=== PATIENT | female | born 1955 | race Caucasian/White ===

== ENCOUNTER 2023-03-02 09:34 | Outpatient (CLI) | payer MEDICARE, MEDICAID ==
--- NOTE | 2023-03-02 13:09 | XRAY Report ---
PROCEDURE: Knee 4 View RT INDICATIONS: RIGHT KNEE PAIN TECHNIQUE: 4 views of the right knee(s) were acquired. COMPARISON: None. FINDINGS: Bones: No fractures or dislocations. No suspicious bony lesions. Tricompartmental joint space narrowing with associated osteophytosis. Soft tissues: Small knee joint effusion. No suspicious soft tissue calcifications or masses. IMPRESSION: Small knee joint effusion. Mild to moderate tricompartmental osteoarthritis. Kellgren-Az scale of osteoarthritis: 2. Reviewed by: Randolph Hensley on 03/02/2023 1:08 PM PDT Approved by: Randolph Hensley on 03/02/2023 1:08 PM PDT Station ID: [id number]
== END 2023-03-02 23:59 | disposition home or self-care (01) ==
LOC: DI.WOS 09:34
PROVIDERS: ATTEND Orthopaedic Surgery
DX: S83.241A Other tear of medial meniscus, current injury, right knee, initial encounter (principal); M25.461 Effusion, right knee; M17.11 Unilateral primary osteoarthritis, right knee

== ENCOUNTER 2023-03-12 08:40 | Outpatient (CLI) | payer MEDICARE, MEDICAID ==
[2023-03-12 14:52] LABS: BASOPHILS # (AUTO) 0.1 10^3/uL (0.0-0.1); EOSINOPHILS # (AUTO) 0.2 10^3/uL (0.0-0.7); HGB - HEMOGLOBIN 13.6 g/dL (12.0-16.0); LYMPHOCYTES # (AUTO) 1.1 10^3/uL (1.5-3.5); LYMPHOCYTES % (AUTO) 18.6 %; MEAN CORPUSCULAR HGB CONC 30.9 g/dL (32.0-36.0); MEAN CORPUSCULAR VOLUME 90.7 fL (81.0-99.0); MONOCYTES # (AUTO) 0.4 10^3/uL (0.0-1.0); MONOCYTES % (AUTO) 6.8 %; NEUTROPHILS % (AUTO) 70.3 %; PLT - PLATELET COUNT 297 10^3/uL (130-450); RED BLOOD COUNT 4.85 10^6/uL (4.20-5.40); RED CELL DISTRIBUTION WIDTH 14.1 % (12.0-15.0); WHITE BLOOD COUNT 5.8 x10^3/uL (4.8-10.8)
[2023-03-12 14:56] LABS: ALBUMIN 4.1 g/dL (3.2-5.5); ALBUMIN/GLOBULIN RATIO 1.6 (1.0-2.2); ALKALINE PHOSPHATASE 69 IU/L (42-121); ALT ALANINE AMINOTRANSFERASE 10 IU/L (10-60); AST ASPARTATE AMINOTRANSFERASE 14 IU/L (10-42); BILIRUBIN,TOTAL 0.4 mg/dL (0.2-1.0); BUN - BLOOD UREA NITROGEN 10 mg/dL (6-20); CALCIUM 9.2 mg/dL (8.5-10.3); CARBON DIOXIDE - CO2 28 mmol/L (21-32); CHLORIDE 108 mmol/L (101-111); CHOLESTEROL 186 mg/dL; CREATININE 0.4 mg/dL (0.6-1.3); GFR - MDRD 160 (>89); GLUCOSE 141 mg/dL (74-104); HDL CHOLESTEROL 61 mg/dL; LDL CHOLESTEROL,CALCULATED 103 mg/dL; LDL/HDL RATIO 1.7 (<4.4); POTASSIUM 3.9 mmol/L (3.5-4.5); SODIUM 142 mmol/L (135-145); TOTAL PROTEIN 6.7 g/dL (6.4-8.9); TRIGLYCERIDES 112 mg/dL (48-352); VLDL CHOLESTEROL 22 mg/dL
[2023-03-12 19:15] LABS: ESTIMATED AVERAGE GLUCOSE 134 mg/dL (70-100); HEMOGLOBIN A1c% 6.3 % (4.27-6.07)
== END 2023-03-12 08:41 | disposition home or self-care (01) ==
LOC: LAB.S 08:40
PROVIDERS: ATTEND Physician Assistant Medical
DX: E11.9 Type 2 diabetes mellitus without complications (principal)
CPT/HCPCS: 36415; 80053; 80061; 83036; 83721; 84443; 85025

== ENCOUNTER 2023-04-15 09:41 | Day surgery (SDC) | payer MEDICARE, MEDICAID ==
[~2023-04-15 09:41] MED LIST: ACETAMINOPHEN 500 MG TABLET PO ONE; CELECOXIB 100 MG CAPSULE PO ONE; DEXAMETHASONE 10 MG/ML VIAL ONE; DEXAMETHASONE 10 MG/ML VIAL PO ONE; ceFAZolin 2 GM VIAL ONE; dexAMETHasone 4 MG TABLET PO ONE
[2023-04-15] MEDS ORDERED: LACTATED RINGERS 1,000 ML IV ONE ×2 (10:24→15:15)
[2023-04-15] MEDS ORDERED: MIDAZOLAM 2 MG/2 ML VIAL ONE (11:27)
[2023-04-15] MEDS ORDERED: fentaNYL 100 MCG/2 ML VIAL ONE (11:28)
[2023-04-15] MEDS ORDERED: KETOROLAC 30 MG/ML VIAL ONE (11:47)
[2023-04-15] MEDS ORDERED: BUPIVACAINE 0.25% PF 30 ML VIAL ONE (11:47)
[2023-04-15] MEDS ORDERED: KETOROLAC 30 MG/ML VIAL IM ONE (13:03)
[2023-04-15] MEDS ORDERED: BUPIVACAINE 0.25% PF 30 ML VIAL SUBQ ONE (13:03)
[2023-04-15] MEDS ORDERED: VANCOMYCIN 1 GM VIAL MC ONE (13:04)
[2023-04-15] MEDS ORDERED: HYDROGEN PEROXIDE 3% 473 ML BOTTLE TOP ONE (13:05)
[2023-04-15] MEDS ORDERED: fentaNYL 100 MCG/2 ML VIAL IVP PRN (13:15)
[2023-04-15] MEDS ORDERED: ePHEDrine 50 MG/ML VIAL IVP PRN (13:15)
[2023-04-15] MEDS ORDERED: ATROPINE ABBOJECT 1 MG/10 ML SYRINGE IVP PRN (13:15)
[2023-04-15] MEDS ORDERED: ONDANSETRON 4 MG/2 ML VIAL IVP PRN ×2 (13:15→15:27)
[2023-04-15] MEDS ORDERED: NALOXONE 0.4 MG/ML VIAL IVP PRN (13:15)
[2023-04-15] MEDS ORDERED: HYDROmorphone 0.5 MG/0.5 ML SYRINGE IVP PRN (13:15)
--- NOTE | 2023-04-15 13:15 | ANESTHESIA ---
Pre-Anesthesia VS, & Labs - Diagnosis r knee OA - Procedure r TKA Vital Signs: Temp Pulse Resp BP Pulse Ox O2 Flow Rate 36.4 C L 83 18 136/90 H 95 04/15/23 10:29 04/15/23 10:29 04/15/23 10:29 04/15/23 10:29 04/15/23 10:29 Height: 5 ft 2.5 in Weight (kg): 81.5 kg Body Mass Index: 32.3 BMI Classification: Obese - NPO >8 hours - Is Patient ?: No - Lab Results Current Lab Results: Laboratory Tests 04/15/23 10:51: POC Whole Bld Glucose 98 Lab results reviewed: Yes Home Medications and Allergies Home Medications: Ambulatory Orders Dulaglutide [Trulicity] 0.75 mg SQ OAW 04/13/23 Gabapentin [Neurontin] 300 mg PO BID 04/13/23 Omeprazole 40 mg PO DAILY 04/13/23 Sertraline HCl 100 mg PO DAILY 04/13/23 hydrOXYzine HCL [Hydroxyzine HCl] 50 mg PO TID PRN 04/13/23 Dulaglutide [Trulicity] 0.75 mg SQ OAW 04/13/23 Gabapentin [Neurontin] 300 mg PO BID 04/13/23 Omeprazole 40 mg PO DAILY 04/13/23 Sertraline HCl 100 mg PO DAILY 04/13/23 hydrOXYzine HCL [Hydroxyzine HCl] 50 mg PO TID PRN 04/13/23 Allergies/Adverse Reactions: Allergies Allergy/AdvReac Type Severity Reaction Status Date / Time No Known Drug Allergies Allergy Verified 04/15/23 10:59 Anes History & Medical History - Anesthetic History Anesthesia Complications: reports: No previous complications Family history of Anesthesia Complications: Denies Family history of Malignant Hyperthermia: Denies - Medical History Cardiovascular: reports: Deep vein thrombosis Pulmonary: reports: None Gastrointestinal: reports: GERD (w/c) Urinary: reports: None Musculoskeletal: reports: Osteoarthritis Endocrine/Autoimmune: reports: Type 2 diabetes Skin: reports: None Smoking Status: Never smoker Psychosocial: reports: No issues indicated - Surgical History General: reports: Colonoscopy Orthopedic: reports: Arthroscopic surgery Exam General: Alert, Oriented x3, Cooperative Dental: WNL Mouth Openin Fingerbreadth Neck Mobility: Normal Mallampati classification: II Thyromental Distance: 4-6 cm Respiratory: Lungs clear Cardiovascular: Regular rate Plan Anesthesia Type: Spinal Consent for Procedure(s) Verified and Reviewed: Yes Code Status: Attempt Resuscitation ASA classification: 2-Mild systemic disease Is this case an emergency?: No
[2023-04-15] MEDS ORDERED: PROPOFOL 500 MG/50 ML 1,000 MG/100 ML VIAL ONE (13:28)
[2023-04-15] MEDS ORDERED: LACTATED RINGERS 1,000 ML IV SCH (14:00)
[2023-04-15] MEDS ORDERED: PROPOFOL 500 MG/50 ML 500 MG/50 ML VIAL ONE (14:24)
--- NOTE | 2023-04-15 14:51 | OPERATIVE REPORT ---
Operative Report - General Procedure Date: 04/15/23 Planned Procedure: right total knee replacement Pre-Op Diagnosis: Osteoarthritis right knee Procedure Performed: Right total knee replacement using [employer] journey 2 cruciate retaining implants: #5 Oxinium femoral component, #3 tibial baseplate, 3 peg polyethylene patellar component, antibiotic cement for all 3 components Palacos Post Op Diagnosis: Same as preoperative diagnosis - Procedure Note Primary Surgeon: Walt Whittaker MD Secondary Surgeon: Cirilo Bang MD, Dayana MCQUEEN Anesthesia Provider: Henok Fish CRNA Anesthesia Technique: Spinal Estimated Blood Loss (mL): 150 Indications: This is a 67-year-old woman with protracted activity related pain to the right knee that has not responded to nonoperative treatment modalities. Most of her pain was over the medial aspect of her right knee with weightbearing activities. Her exam showed medial joint line tenderness, and some decreased motion, otherwise normal exam. Her x-rays were abnormal, near [id number] contact of medial compartment, varus angulation consistent with osteoarthritis right knee. She has been evaluated preoperatively and has signed informed consent for the procedure, right total knee replacement Findings: There was complete loss of articular cartilage to the medial femoral condyle weightbearing surface, marked loss of articular cartilage to the patella with osteophytes about the patellofemoral and tibiofemoral joint. The lateral compartment was relatively spared with partial thickness articular cartilage loss. The cruciate ligaments are intact Complications: None - Other Other Information/Narrative: The patient was brought to the operating room and was placed in a supine position. A pneumatic tourniquet was applied to the proximal right thigh over cast padding. This was a conical shaped Rusty thigh tourniquet that was sterile. A knee positioner was placed on the operating room table to facilitate knee flexion of the right knee during surgery. A timeout procedure was performed by the entire operating room team and all were in agreement. A midline longitudinal incision was made with the knee in flexion. A medial parapatellar arthrotomy was made. The anterior horn of medial and lateral menisci were released and part of patellar fat pad was excised. The knee was flexed and the patella was dislocated laterally. A drill hole was made in the intramedullary notch with a 9.5 mm drill. Osteophytes about the proximal tibia and femur had been removed with a rongeur. The distal femoral cutting guide was aligned parallel to the posterior condyles. The intramedullary esteban and guide was advanced and the distal femoral guide was stabilized with half pins. The distal 5 degrees valgus cut was made through the distal femoral guide. Next the extra medullary tibial guide was assembled and applied and aligned to the mechanical axis in both sagittal and coronal planes. Tibial referencing was done to allow 3 mm of bone from the most affected side. The tibial guide was stabilized with half pins. Retractors were placed medially and laterally to protect the collateral ligaments and a retractor was placed directly against the posterior bone to sublux the tibia anteriorly. A precision Nitro PDF saw was used to make the tibial proximal cut. The tibial block was removed as a single piece and the menisci were removed as well. The extension gap was assessed with a extension block spacer using a 10 mm spacer and this was found to fit well as well as the 10 mm spacer block with the knee in 90 degrees of flexion. Next the femoral positioning guide was applied and aligned to the epicondylar axis and Castalia line. This was secured in place with approximately 3 degrees of external rotation. The size of the femur at the anterior lateral trochlea was a #5. Drill holes were made in the 5 and 1 #6 cutting block was inserted and secured. The 5 cuts were made to the captured block using precision saw. The flexion gap was assessed with the 10 mm spacer and was found to fit well. The patella was then prepared. The patella was prepared with a flat cut using the Nitro PDF precision saw, approximately 10 mm with equal resection measured medially and laterally. Then the patellar drill guide was applied and 3 drill holes were made within the patella was used. The tibial trial #3 was then applied to the tibia and aligned to the mechanical axis. The Intramedullary drill and punch fin was utilized. Trial reduction was performed with the femoral and tibial components in place. Notch resection was then through the trial component . Pulsatile lavage was performed. A tourniquet was applied during the cementing process. Palacos antibiotic cement was utilized.The components were inserted sequentially: Tibia, femur and lastly patellar component. Excess cement was removed and the knee was placed in extension during the hardening.Sterile Dilute Betadine irrigation was performed. The knee had full range of motion, good patellar tracking. There was good stability of the knee in full extension mid flexion and 90 degrees of flexion. There was good alignment of the right knee. Vancomycin powder was inserted prior to the deep closure. The tourniquet had been deflated and had been in place for 21 minutes. Hemostasis was achieved with electrocautery. The deep closure was performed with #1 Ethibond proximal and distal to the patella with the knee in 40 degrees of flexion. #1 Stratofix suture was then used to close the arthrotomy incision. 2-0 stratofix was used to close the subcutaneous tissue. 3-0 Monocryl was used to do a subcuticular skin closure. Dermabond was applied to the skin incision. After the Dermabond had hardened, a silver impregnated dressing was applied. The patient tolerated the procedure well and received 2 g of Ancef intravenously and 2 g of tranexamic acid.A physician resident programs assistant was used and felt to be medically necessary to provide retraction, protection of vital structures, exposure, skin closure and dressing.
[2023-04-15] MEDS ORDERED: SODIUM CHLORIDE FLUSH 0.9% 10 ML SYRINGE IVP PRN (15:27)
[2023-04-15] MEDS ORDERED: DOCUSATE SODIUM 100 MG CAPSULE PO PRN (15:27)
[2023-04-15] MEDS ORDERED: fentaNYL 250 MCG/5 ML VIAL IVP PRN (15:27)
[2023-04-15] MEDS ORDERED: ONDANSETRON 4 MG/2 ML VIAL ONE (15:28)
--- NOTE | 2023-04-15 15:53 | ANESTHESIA POST OP EVALUATION ---
Anesthesia Post Eval - Post Anesthesia Eval Vitals: Last Vital Signs Temp 36.1 C L 04/15/23 15:45 Pulse 74 04/15/23 15:45 Resp 13 04/15/23 15:45 BP 115/72 04/15/23 15:45 Pulse Ox 94 04/15/23 15:45 O2 Flow Rate CV Function Including HR & BP: Stable Pain Control: Satisfactory Nausea & Vomiting: Negative Mental Status: Baseline Respiratory Status: Airway Patent Hydration Status: Satisfactory Anesthesia Complications: None
--- NOTE | 2023-04-15 16:57 | XRAY Report ---
PROCEDURE: Knee 2 View RT INDICATIONS: post operative imaging TECHNIQUE: 2 views of the knee(s) were acquired. COMPARISON: None. FINDINGS: Bones: Patient is status post right total knee arthroplasty. Soft tissues: Expected postoperative appearance is of the overlying soft tissues are noted. IMPRESSION: Expected postoperative appearance is status post right total knee arthroplasty. Reviewed by: Yvonne Zaman MD on 04/15/2023 4:55 PM PST Approved by: Yvonne Zaman MD on 04/15/2023 4:55 PM PST Station ID: [id number]
[2023-04-15] MEDS ORDERED: CHERRY SYRUP 10 ML UDC PO ONE (17:10)
[2023-04-15] MEDS: traMADol 50 MG TABLET PO SCH ×2 (18:54→23:56)
[2023-04-15] MEDS: SODIUM CHLORIDE FLUSH 0.9% 10 ML SYRINGE IVP SCH ×2 (18:54→23:58)
[2023-04-15] MEDS: NS W/20 MEQ KCL 1,000 ML IV SCH (19:00)
[2023-04-15] MEDS: ceFAZolin (2G) 2 GM in SODIUM CHLORIDE 0.9% MINIBAG 100 ML IV SCH ×2 (19:01→23:59)
[2023-04-15] MEDS: ACETAMINOPHEN 500 MG TABLET PO SCH ×2 (19:11→22:15)
[2023-04-15] MEDS: CELECOXIB 100 MG CAPSULE PO SCH (20:36)
[2023-04-15] MEDS: GABAPENTIN 300 MG CAPSULE PO SCH (20:40)
[2023-04-15] MEDS: ethyl alcohoL 62% SWAB AMPULE NAS SCH (20:40)
[2023-04-15] MEDS: DOCUSATE SODIUM 100 MG CAPSULE PO SCH (20:40)
[2023-04-15] MEDS: oxyCODONE 5 MG TABLET PO PRN (20:40)
[2023-04-15] MEDS: ASPIRIN EC 81 MG TABLET PO SCH (20:41)
[2023-04-16] MEDS: oxyCODONE 5 MG TABLET PO PRN (02:31)
[2023-04-16] MEDS: ACETAMINOPHEN 500 MG TABLET PO SCH ×3 (02:54→16:01)
[2023-04-16] MEDS: traMADol 50 MG TABLET PO SCH ×2 (06:28→12:12)
[2023-04-16] MEDS ORDERED: PANTOPRAZOLE 40 MG TABLET PO SCH (07:00)
[2023-04-16] MEDS ORDERED: oxyCODONE 5 MG TABLET PO PRN (07:38)
--- NOTE | 2023-04-16 07:47 | PROVIDER PROGRESS NOTE ---
Subjective - General Procedure Date: 04/15/23 Post Op Days: 1 Procedure Performed: Right total knee arthroplasty - Other Other Information/Narrative: Lying in bed semi recumbent She denies chest pain, dyspnea, nausea and emesis She has not been up with physical therapy yet She reports moderate pain today Objective - Patient Data Reviewed Vital Signs: Yes Vital Signs: Vital Signs x48h Temp Pulse Resp BP Pulse Ox 04/16/23 06:41 36.5 C 93 18 130/68 95 04/16/23 02:56 36.5 C 91 20 114/64 92 Weight: Weight 04/14/23 04/15/23 04/16/23 23:59 23:59 23:59 Weight (kg) 81.5 kg Intake & Output: Intake and Output Totals x24h 04/14/23 04/15/23 04/16/23 23:59 23:59 23:59 Intake Total 605 100 Output Total 1000 100 Balance -395 0 - Lab Results Other Lab Results: Lab Results x24hrs 04/15/23 04/15/23 Range/Units 15:20 10:51 POC Whole Bld Glucose 100 98 (70 - 100) mg/dL - Imaging Results Radiology Imaging: positive: Final report received - Current Medications Current Medications: Current Medications Generic Name Dose Route Start Last Admin Trade Name Freq PRN Reason Stop Dose Admin Acetaminophen 1,000 mg 04/15/23 16:00 04/16/23 02:54 Acetaminophen 500 Mg Tablet PO 1,000 mg Q6H JAVIER Administration Alcohol 1 amp 04/15/23 21:00 04/15/23 20:40 Ethyl Alcohol 62% Swab Ampule ANNY 1 amp BID JAVIER Administration Aspirin 81 mg 04/15/23 21:00 04/15/23 20:41 Aspirin Ec 81 Mg Tablet PO 81 mg BID JAVIER Administration Celecoxib 200 mg 04/15/23 21:00 04/15/23 20:36 Celecoxib 100 Mg Capsule PO Not Given BID JAVIER Docusate Sodium 100 mg 04/15/23 21:00 04/15/23 20:40 Docusate Sodium 100 Mg Capsule PO 100 mg BID JAVIER Administration Fentanyl 25 mcg 04/15/23 15:27 04/15/23 17:09 Fentanyl 250 Mcg/5 Ml Vial IVP 25 mcg Q2HR PRN Administration Severe Breakthrough pain(8-10) Gabapentin 300 mg 04/15/23 21:00 04/15/23 20:40 Gabapentin 300 Mg Capsule PO 300 mg BID JAVIER Administration Potassium Chloride/Sodium Chloride 1,000 mls @ 75 mls/hr 04/15/23 16:00 04/15/23 20:41 Normal Saline 0.9% W/20 Meq Kcl IV 75 mls/hr .[id number] JAVIER Infusion Pantoprazole Sodium 40 mg 04/16/23 07:00 04/16/23 06:29 Pantoprazole 40 Mg Tablet PO 40 mg QDAC JAVIER Administration Sodium Chloride 10 ml 04/15/23 17:00 04/15/23 23:58 Sodium Chloride Flush 0.9% 10 Ml Syringe IVP 10 ml 0100,0900,1700 JAVIER Administration Tramadol HCl 50 mg 04/15/23 18:00 04/16/23 06:28 Tramadol 50 Mg Tablet PO 50 mg Q6HR JAVIER Administration - Physical Exam Comments/Other: well developed, well nourished, 67 year old female, no acute distress dressing is dry and intact with about 1.5cm spot of sanguinous drainage on mepliex. No hematoa Femoral and sciatic nerve function in tact to right lower extremity ABX Reporting Has patient been on IV antibiotics over the past 48 hours?: Yes Impression/Plan - Problem List Problem List: 67 year old female with a past medical history of diabetes mellitus type II and anxiety/depression is post operative day 1 from a right total knee arthroplasty. She reports moderate pain today and is awaiting evaluation from physical therapy for discharge home today. She is recovering well without nausea, emesis, chest pain or dyspnea. Plan: - DVT prophylaxis with 81 mg of aspirin twice daily for 6 weeks, SCDs in hospital - Physical and occupational therapy evaluation today and assessment for discharge home - Pain control with scheduled tylenol, celebrex, tramadol and oxycodone and IV fentanyl as needed. Avoid IV narcotics in anticipation of discharge home. Oxycodone regimen altered today given reported pain overnight - Weight bearing as tolerated with front wheeled walker at all times - Follow up with orthopedic clinic in 5 days - Mepilex dressing to remain in place until follow up - Refer to OPS discharge instructions and call the orthopedic office with outstanding questions - Bowel regimen - Normal diet, IV fluids to be discontinued when tolerating oral diet without nausea and emesis
[2023-04-16] MEDS: NS W/20 MEQ KCL 1,000 ML IV SCH (08:53)
[2023-04-16] MEDS ORDERED: SERTRALINE 50 MG TABLET PO SCH (09:00)
[2023-04-16] MEDS: ASPIRIN EC 81 MG TABLET PO SCH (09:09)
[2023-04-16] MEDS: GABAPENTIN 300 MG CAPSULE PO SCH (09:09)
[2023-04-16] MEDS: ethyl alcohoL 62% SWAB AMPULE NAS SCH (09:09)
[2023-04-16] MEDS: DOCUSATE SODIUM 100 MG CAPSULE PO SCH (09:09)
[2023-04-16] MEDS: SODIUM CHLORIDE FLUSH 0.9% 10 ML SYRINGE IVP SCH ×2 (09:10→16:00)
[2023-04-16] MEDS: CELECOXIB 100 MG CAPSULE PO SCH (09:13)
--- NOTE | 2023-04-16 13:33 | PHARMACY PROGRESS NOTE ---
- Best Possible Medication History Admit Date and Time: Processed by: Nursing As the person ultimately responsible for medication therapy, providers are able to order a medication from an existing home medication list in [facility] via the "Reconcile Routine" prior to Confirmation of that medication by academic support director. Such practice is discouraged except when the physician, in their clinical judgment, deems that a medical need exists for a medication without regard to previous use.
[2023-04-16 14:49] VITALS: O2SAT 94
[2023-04-16 16:37] VITALS: BP 136/76
== END 2023-04-16 16:55 | disposition home or self-care (01) ==
LOC: SDS 09:41 → MS2 15:07 → SDS 04-16 16:55
PROVIDERS: ATTEND Orthopaedic Surgery
DX: M17.11 Unilateral primary osteoarthritis, right knee (principal); E11.9 Type 2 diabetes mellitus without complications; E66.9 Obesity, unspecified; Z79.85 Long-term (current) use of injectable non-insulin antidiabetic drugs; Z86.718 Personal history of other venous thrombosis and embolism; Z68.32 Body mass index [BMI] 32.0-32.9, adult
CPT/HCPCS: 27447; 73560; 97116; 97162; 97165; 97530; A9270; J3010; J3370; J7120

== ENCOUNTER 2023-05-06 09:11 | Outpatient (CLI) | payer MEDICARE, MEDICAID | END 2023-05-06 09:12 | disposition home or self-care (01) | LOC: LAB.S 09:11 | PROVIDERS: ATTEND Physician Assistant Surgical | DX: Z96.651 Presence of right artificial knee joint (principal) | CPT/HCPCS: 36415; 85651; 86140 ==

== ENCOUNTER 2023-05-07 10:48 | Outpatient (CLI) | payer MEDICARE, MEDICAID | END 2023-05-07 10:49 | disposition home or self-care (01) | LOC: LAB.R 10:48 | PROVIDERS: ATTEND Orthopaedic Surgery | DX: L08.9 Local infection of the skin and subcutaneous tissue, unspecified (principal) | CPT/HCPCS: 87070; 87181; 87205 ==

== ENCOUNTER 2023-05-09 10:05 | Outpatient (CLI) | payer MEDICARE, MEDICAID | END 2023-05-09 23:59 | disposition critical access hospital (66) | LOC: EMS 10:05 | DX: M25.561 Pain in right knee (principal); Z96.651 Presence of right artificial knee joint | CPT/HCPCS: A0425; A0429 ==

== ENCOUNTER 2023-05-09 10:39 | Emergency (ER) | payer MEDICARE, MEDICAID ==
--- NOTE | 2023-05-09 11:50 | ED Physician Documentation ---
History of Present Illness - Stated complaint Stated Complaint: R KNEE PX - Chief complaint Chief Complaint: Ext Problem - Additonal information Additional information: 67-year-old female presents emergency department for evaluation of worsening right knee pain. She underwent a total knee replacement 04/15/2023 secondary to severe knee osteoarthritis. She states that she had been doing well but sometime in the last week she began having increasing pain in her right knee. She has had some drainage from the superior portion of the vertical incision that is serous. No fevers. She is ambulatory with a walker though it is getting more painful to do so. Patient did have a wound culture of the knee completed 05/07/2023 which grew a clindamycin resistant Staph aureus. Currently on cephalexin. Patient is a poor historian and unsure of timing of events. Review of Systems Constitutional: denies: Fever, Chills Skin: reports: Other (surgical incision) Musculoskeletal: denies: Neck pain, Back pain PD PAST MEDICAL HISTORY - Past Medical History Past Medical History: Yes Cardiovascular: Deep vein thrombosis Respiratory: None Neuro: None Endocrine/Autoimmune: Type 2 diabetes GI: GERD : None HEENT: Chronic vision loss Psych: Anxiety Musculoskeletal: Osteoarthritis Derm: None - Past Surgical History Past Surgical History: Yes General: Colonoscopy Ortho: Knee replacement, Arthroscopic surgery - Present Medications Home Medications: Ambulatory Orders Medication Instructions Recorded Confirmed Dulaglutide [Trulicity] 0.75 mg SQ OAW 04/13/23 04/13/23 Gabapentin [Neurontin] 300 mg PO BID 04/13/23 04/15/23 Omeprazole 40 mg PO DAILY 04/13/23 04/15/23 Sertraline HCl 100 mg PO DAILY 04/13/23 04/15/23 hydrOXYzine HCL [Hydroxyzine HCl] 50 mg PO TID PRN 04/13/23 04/13/23 cephALEXin [Keflex] 500 mg PO Q6H 05/09/23 05/09/23 - Allergies Allergies/Adverse Reactions: Allergies Allergy/AdvReac Type Severity Reaction Status Date / Time No Known Drug Allergies Allergy Verified 05/09/23 10:51 - Social History Does the pt smoke?: No Smoking Status: Never smoker PD ED PE NORMAL - General General: Alert and oriented X 3, No acute distress - Extremities Extremities: Other (Right knee with a lengthy midline vertical incision generally intact. However the superior 2 to 3 cm of the incision are erythematous with some fluctuance felt underneath and serous drainage. Patient has normal flexion extension of the knee. Neurovascular intact distally) Results - Vitals Vitals: Vital Signs - 24 hr 05/09/23 10:39 Temperature 36.6 C Heart Rate 101 H Respiratory 16 Rate Blood Pressure 153/94 H O2 Saturation 95 Oxygen O2 Source Room air PD Medical Decision Making - ED course Complexity details: reviewed results, re-evaluated patient, d/w patient ED course: No problem widening she 67-year-old female presents emergency department for evaluation of her right knee. Status post total knee replacement on 15 April. Was seen in follow-up with Dr. Leger on 07 May as she had begun to have some drainage from the superior portion of her wound. Subsequent culture grew clindamycin resistant Staph aureus. Currently on cephalexin. Dr. Leger was able to review the wound photos that were obtained today. He feels that the appearance of the wound is improved from several days ago. I discussed with him if he felt it would benefit to have labs obtained including CBC and CRP but as the patient is afebrile he would not recommend them today. Patient is scheduled to see Dr. Whittaker in follow-up on the seventh of this month and she is encouraged to keep that appointment. At this time she feels better knowing that Dr. Leger feels the appearance of the incision is improved. She is encouraged to continue to wear her knee immobilizer. Advised to return to the ER should she develop any fevers, milky drainage red streaking or have more concerning symptoms of infection. Departure - Departure Disposition: 01 Home, Self Care Clinical Impression: Status post total knee replacement, right Right knee pain Qualifiers: Chronicity: acute Qualified Code(s): M25.561 - Pain in right knee Condition: Stable Comments: Dr. Africa Mustafa was able to review the photos taken of your knee today. He feels the appearance of the redness and incision are improved. He recommends that you continue taking the Keflex as prescribed. You are scheduled to see Dr. Nicole on the seventh of this month. Please do not miss that appointment. Dr. Miller would like you to continue to wear the knee immobilizer while at home. You can shower normally. A simple bandage over the drainage is all you will need. Return immediately to the ER if you are having any new or worsening symptoms, develop fevers, or have drainage from the knee that turns milky or cloudy Forms: PCP List
[2023-05-09] MEDS ORDERED: oxyCODONE 5 MG TABLET PO STA (11:57)
--- NOTE | 2023-05-09 12:31 | XRAY Report ---
PROCEDURE: Knee 3 View RT INDICATIONS: pain, swelling; s/p knee replacement TECHNIQUE: 3 views of the knee(s) were acquired. COMPARISON: None. FINDINGS: Bones: No fractures or dislocations. No suspicious bony lesions. Well-aligned arthroplasty withou t hardware complication. Soft tissues: No knee joint effusion. No suspicious soft tissue calcifications or masses. IMPRESSION: Expected postoperative appearance of a right total knee arthroplasty. No significant effusion. Reviewed by: Randolph Hensley on 05/09/2023 11:30 AM [facility] Approved by: Randolph Hensley on 05/09/2023 11:30 AM [facility] Station ID: [id number]
[2023-05-09] MEDS ORDERED: BACITRACIN ZINC OINT 1 PACKET TOP STA (12:32)
[2023-05-09 13:00] VITALS: BP 129/83; O2SAT 96
== END 2023-05-09 13:04 | disposition home or self-care (01) ==
LOC: EDUNIT# → ED 10:39
DX: M25.561 Pain in right knee (principal); Z96.651 Presence of right artificial knee joint; E11.9 Type 2 diabetes mellitus without complications; Z79.899 Other long term (current) drug therapy
CPT/HCPCS: 73562; 87070; 87181; 87205; 99283; 99284; A9270; 80053; 83690; 85025; 86140

== ENCOUNTER 2023-05-21 08:00 | Outpatient (CLI) | payer MEDICARE, MEDICAID ==
[2023-05-21 20:23] LABS: BILIRUBIN,URINE NEGATIVE (NEGATIVE); GLUCOSE, URINE (UA) NEGATIVE (NEGATIVE); KETONES,URINE (UA) NEGATIVE (NEGATIVE); LEUKOCYTE ESTERASE, URINE MODERATE (NEGATIVE); NITRITE,URINE NEGATIVE (NEGATIVE); OCCULT BLOOD,URINE NEGATIVE (NEGATIVE); PROTEIN,URINE NEGATIVE (NEGATIVE); UROBILINOGEN,URINE 0.2 (NORMAL) E.U./dL (NORMAL)
[2023-05-21 20:53] LABS: BACTERIA,URINE Moderate /HPF (None Seen); CLARITY,URINE CLOUDY (CLEAR); RBC,URINE None Seen /HPF (0-5); SQUAMOUS EPITHELIAL CELL,UR MANY Squamous (<= Few)
== END 2023-05-21 23:59 | disposition home or self-care (01) ==
LOC: LAB.S 08:00
PROVIDERS: ATTEND Emergency Medicine
DX: N39.0 Urinary tract infection, site not specified (principal)
CPT/HCPCS: 81001; 81003; 87086

== ENCOUNTER 2023-08-25 08:00 | Outpatient (CLI) | payer MEDICARE, MEDICAID ==
--- NOTE | 2023-08-25 16:40 | XRAY Report ---
PROCEDURE: Knee 4 View RT INDICATIONS: RIGHT TOTAL KNEE, NEW ONSET OF PAIN NO INJURY TECHNIQUE: 4 views of the knee(s) were acquired. COMPARISON: 06/23/2023. FINDINGS: Bones: No fractures or dislocations. No suspicious bony lesions. Soft tissues: Small persistent knee joint effusion. No suspicious soft tissue calcifications or mass es. IMPRESSION: Stable postoperative changes of right total knee arthroplasty without evidence for hardware complicat ion. Reviewed by: Chidi Araujo MD on 08/25/2023 4:39 PM PDT Approved by: Chidi Araujo MD on 08/25/2023 4:39 PM PDT Station ID: [id number]
== END 2023-08-25 23:59 | disposition home or self-care (01) ==
LOC: DI.WOS 08:00
PROVIDERS: ATTEND Orthopaedic Surgery
DX: Z96.651 Presence of right artificial knee joint (principal)

== ENCOUNTER 2023-09-11 12:33 | Outpatient (CLI) | payer MEDICARE, MEDICAID ==
--- NOTE | 2023-09-16 09:08 | Mammography Report ---
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 Due for bilateral exam. Comparison is made to exams dated: 07/10/2022 mammogram, 07/10/2022 ultrasound, 03/26/2022 mammogram, an d 01/06/2019 mammogram - [facility]. There are scattered areas of fibroglandular density in both breasts (category b / 25%-50% glandular t issue). There is an 8 mm oval focal asymmetry in the right breast at 8 o'clock middle depth. This is not sig nificantly changed. Mammograms are otherwise stable. No other significant masses, calcifications, or other findings are seen in either breast. IMPRESSION: INCOMPLETE: NEEDS ADDITIONAL IMAGING EVALUATION Mammograms are stable. The 8 mm oval focal asymmetry in the right breast is stable, most likely is a cyst or an intramammary node and is indeterminate. An ultrasound is recommended. This was performed immediately following this exam. Based on the Tyrer Cuzick model (a risk assessment model) the patient's lifetime risk is 6.2% and her 10 year risk is 3.0%. According to the ACR, ACS, and NCCN guidelines, an annual breast MRI exam shana g with mammogram is recommended if the patient's lifetime risk is 20% or greater. This exam was interpreted at Station ID: [id number]. NOTE: For mammograms, a report in lay terms will be sent to the patient. Approximately 15% of breast malignancies will not be visualized mammographically. In the management of a palpable breast mass, a negative mammogram must not discourage biopsy of a clinically suspicious lesion. Electronically Signed By: Meka tamayo/:09/11/2023 14:11:24 ACR BI-RADS Category 0: Incomplete 3340F PARENCHYMAL PATTERN: (A) - The breast(s) demonstrate(s) scattered fibroglandular densities. BI-RADS CATEGORY: (0) - 0 Ultrasound [id number] Immediate follow-up LATERALITY: (B)
--- NOTE | 2023-09-16 09:08 | Ultrasound Report ---
LIMITED ULTRASOUND OF RIGHT BREAST: 09/15/2023 CLINICAL: Patient returns today to evaluate a focal asymmetry in the right breast. Comparison is made to exams dated: 09/11/2023 mammogram - [facility], 07/10/2022 mammo gram, 07/10/2022 ultrasound, 03/26/2022 mammogram, and 01/06/2019 mammogram - [facility]. Color flow and Doppler ultrasound of the right breast 6 o'clock and 8-9 o'clock regions were performe d. Leal scale images of the real-time examination were reviewed. No definite correlate to the possible mammographic asymmetry 8:00-9:00. There is a probable area of g landular tissue surrounded by fibrosis at the 8:00 position 4 cm from the nipple, but no definite com plicated cyst as mentioned previously. IMPRESSION: PROBABLY BENIGN There are no convincing abnormalities seen in the right breast to correspond with the mammography fin dings at 8 to 9 o'clock. There is probably normal fibroglandular tissue, less likely a lymph node or decompressed complicated cyst. No previous images are available for direct comparison. A follow-up right mammogram and an ultrasound in 6 months is recommended to demonstrate stability. Findings and recommendations were conveyed to the patient at time of exam. This exam was interpreted at Station ID: [id number]. Electronically Signed By: Meka tamayo/:09/15/2023 11:13:31 Ultrasound BI-RADS: 3 Probably benign BI-RADS CATEGORY: (3) - 3 Mammo and [place] [id number] 6 month follow-up LATERALITY: (R)
== END 2023-09-11 12:34 | disposition home or self-care (01) ==
LOC: DI 12:33
PROVIDERS: ATTEND Physician Assistant Medical
DX: R92.8 Other abnormal and inconclusive findings on diagnostic imaging of breast (principal); R92.323 Mammographic fibroglandular density, bilateral breasts

== ENCOUNTER 2023-09-23 08:00 | Outpatient (CLI) | payer MEDICARE, MEDICAID | END 2023-09-23 23:59 | disposition home or self-care (01) | LOC: LAB.S 08:00 | PROVIDERS: ATTEND Internal Medicine | DX: N39.0 Urinary tract infection, site not specified (principal) | CPT/HCPCS: 87077; 87086 ==

== ENCOUNTER 2023-10-15 04:23 | Outpatient (CLI) | payer MEDICARE, MEDICAID | END 2023-10-15 04:24 | disposition EMS.NT | LOC: EMS 04:23 | DX: R07.9 Chest pain, unspecified (principal); M54.2 Cervicalgia ==

== ENCOUNTER 2023-10-23 06:26 | Day surgery (SDC) | payer MEDICARE, MEDICAID ==
[2023-10-23] MEDS: LACTATED RINGERS 1,000 ML IV ONE ×2 (06:35→08:10)
--- NOTE | 2023-10-23 07:02 | ANESTHESIA ---
Pre-Anesthesia VS, & Labs - Diagnosis SCREENING - Procedure COLONOSCOPY Vital Signs: Temp Pulse Resp BP Pulse Ox O2 Flow Rate 36 C L 82 20 132/83 H 96 10/23/23 06:42 10/23/23 06:42 10/23/23 06:42 10/23/23 06:42 10/23/23 06:42 Height: 5 ft 3 in Weight (kg): 80.3 kg Body Mass Index: 31.4 BMI Classification: Obese - NPO Last Fluid Intake: 0200 Last Food Intake: >8HR - Is Patient ?: No - Lab Results Current Lab Results: Laboratory Tests 10/23/23 06:51: POC Whole Bld Glucose 140 H Home Medications and Allergies Dulaglutide [Trulicity] 0.75 mg SQ OAW 04/13/23 Gabapentin [Neurontin] 300 mg PO BID 04/13/23 Omeprazole 40 mg PO DAILY PRN 04/13/23 Sertraline HCl 100 mg PO DAILY 04/13/23 hydrOXYzine HCL [Hydroxyzine HCl] 50 mg PO TID PRN 04/13/23 Allergies/Adverse Reactions: Allergies Allergy/AdvReac Type Severity Reaction Status Date / Time No Known Drug Allergies Allergy Verified 05/09/23 10:51 Anes History & Medical History - Anesthetic History Anesthesia Complications: reports: No previous complications Family history of Anesthesia Complications: Denies - Medical History Cardiovascular: reports: None, Deep vein thrombosis, Other (HAS SOME "MUSCULAR CHEST PAIN", ACTIVE/ WALKS) Pulmonary: reports: None Gastrointestinal: reports: GERD Urinary: reports: None Neuro: reports: None Musculoskeletal: reports: Osteoarthritis Endocrine/Autoimmune: reports: Type 2 diabetes (OFF TRULICITY "A COUPLE OF WEEKS") Skin: reports: None Smoking Status: Never smoker Psychosocial: reports: No issues indicated - Surgical History General: reports: Colonoscopy Orthopedic: reports: Knee replacement, Arthroscopic surgery Exam General: Alert Dental: WNL Mouth Openin Fingerbreadth Neck Mobility: Normal Mallampati classification: II Thyromental Distance: 4-6 cm Respiratory: Lungs clear Cardiovascular: Regular rate Plan Anesthesia Type: Total IV Consent for Procedure(s) Verified and Reviewed: Yes Code Status: Attempt Resuscitation ASA classification: 2-Mild systemic disease Is this case an emergency?: No
--- NOTE | 2023-10-23 07:23 | HISTORY & PHYSICAL EXAMINATION ---
Chief Complaint - Chief Complaint Chief Complaint: here for colonoscopy History of Present Illness - History Obtained From Records Reviewed: yes History obtained from: pt Exam Limitations: none - History of Present Illness HPI Comment/Other: she states she had a colonoscopy about 6 years ago and she is due for another one. no fhx colon ca. recent labs normal. she does not recall the findings of the last colonoscopy. occasional mild llq pain. distant hx c diff following abx course. History - Past Medical History Cardiovascular: reports: None, Deep vein thrombosis, Other (HAS SOME "MUSCULAR CHEST PAIN", ACTIVE/ WALKS) Respiratory: reports: None Neuro: reports: None Endocrine/Autoimmune: reports: Type 2 diabetes (OFF TRULICITY "A COUPLE OF WEEKS") GI: reports: GERD : reports: None HEENT: reports: Chronic vision loss Psych: reports: Anxiety Musculoskeletal: reports: Osteoarthritis Derm: reports: None MRSA Hx?: Yes - Past Surgical History General: reports: Colonoscopy Ortho: reports: Knee replacement, Arthroscopic surgery Meds/Allgy - Home Medications Home Medications: Ambulatory Orders Medication Instructions Recorded Confirmed Dulaglutide [Trulicity] 0.75 mg SQ OAW 04/13/23 10/15/23 Gabapentin [Neurontin] 300 mg PO BID 04/13/23 10/15/23 Omeprazole 40 mg PO DAILY PRN 04/13/23 10/15/23 Sertraline HCl 100 mg PO DAILY 04/13/23 10/15/23 hydrOXYzine HCL [Hydroxyzine HCl] 50 mg PO TID PRN 04/13/23 10/15/23 - Allergies Allergies/Adverse Reactions: Allergies Allergy/AdvReac Type Severity Reaction Status Date / Time No Known Drug Allergies Allergy Verified 05/09/23 10:51 Review of Systems - Other Findings Other Findings: 10 pt ros as above otherwise unremarkable Exam - Vital Signs Vital Signs: Vital Signs x48h Temp Pulse Resp BP Pulse Ox 10/23/23 06:42 36 C L 82 20 132/83 H 96 - Physical Exam General Appearance: positive: No acute distress, Alert Eyes Bilateral: positive: PERRL, EOMI ENT: positive: No signs of dehydration Neck: positive: No JVD Respiratory: positive: No respiratory distress Cardiovascular: positive: Regular rate & rhythm Abdomen: positive: Non-tender, No distention Neurologic/Psychiatric: positive: Oriented x3 Conclusion/Plan - Problem List (1) Colon cancer screening Conclusion/Plan: plan colonoscopy. parq held and consent obtained
[2023-10-23] MEDS ORDERED: PROPOFOL 500 MG/50 ML 500 MG/50 ML VIAL ONE (07:31)
[2023-10-23] MEDS ORDERED: LIDOCAINE-PF 2% 10 ML AMP SUBQ ONE (07:31)
[2023-10-23] MEDS ORDERED: SIMETHICONE *(INFANT SUSP)* 40 MG/0.6 ML BOTTLE ONE (07:47)
[2023-10-23] MEDS: SIMETHICONE *(INFANT SUSP)* 40 MG/0.6 ML BOTTLE PO ONE (07:48)
[2023-10-23 08:55] VITALS: BP 140/89; O2SAT 99
--- NOTE | 2023-10-23 09:37 | ANESTHESIA POST OP EVALUATION ---
Anesthesia Post Eval - Post Anesthesia Eval Vitals: Last Vital Signs Temp 36.2 C L 10/23/23 08:40 Pulse 77 10/23/23 08:40 Resp 16 10/23/23 08:40 BP 140/89 H 10/23/23 08:40 Pulse Ox 99 10/23/23 08:40 O2 Flow Rate CV Function Including HR & BP: Stable Pain Control: Satisfactory Nausea & Vomiting: Negative Mental Status: Baseline Respiratory Status: Airway Patent Hydration Status: Satisfactory Anesthesia Complications: None
== END 2023-10-23 06:27 | disposition home or self-care (01) ==
LOC: SDS 06:26
PROVIDERS: ATTEND Surgery
PROC: 0DBH8ZZ Excision of Cecum, Via Natural or Artificial Opening Endoscopic (ICD-10-PCS; principal; 2023-10-23 07:30)
DX: Z12.11 Encounter for screening for malignant neoplasm of colon (principal); D12.0 Benign neoplasm of cecum; K57.30 Diverticulosis of large intestine without perforation or abscess without bleeding; E66.9 Obesity, unspecified; Z68.31 Body mass index [BMI] 31.0-31.9, adult; E11.9 Type 2 diabetes mellitus without complications; Z86.718 Personal history of other venous thrombosis and embolism
CPT/HCPCS: 45380; A9270; J7120

== ENCOUNTER 2023-10-26 08:58 | Outpatient (CLI) | payer MEDICARE, MEDICAID ==
[2023-10-26 16:04] LABS: CALCIUM 8.9 mg/dL (8.5-10.3); CREATININE 0.5 mg/dL (0.6-1.3); POTASSIUM 4.6 mmol/L (3.5-4.5)
[2023-10-26 22:21] LABS: ESTIMATED AVERAGE GLUCOSE 120 mg/dL (70-100); HEMOGLOBIN A1c% 5.8 % (4.27-6.07)
== END 2023-10-26 08:59 | disposition home or self-care (01) ==
LOC: LAB.S 08:58
PROVIDERS: ATTEND Physician Assistant Medical
DX: E11.9 Type 2 diabetes mellitus without complications (principal)
CPT/HCPCS: 36415; 80048; 82043; 82570; 83036

== ENCOUNTER 2023-11-03 08:00 | Outpatient (CLI) | payer MEDICARE, MEDICAID | END 2023-11-03 23:59 | disposition home or self-care (01) | LOC: LAB.S 08:00 | PROVIDERS: ATTEND Physician Assistant Medical | DX: R35.0 Frequency of micturition (principal); R10.9 Unspecified abdominal pain | CPT/HCPCS: 87086 ==

== ENCOUNTER 2023-11-06 15:10 | Outpatient (CLI) | payer MEDICARE, MEDICAID ==
[2023-11-06] MEDS ORDERED: iohexoL-300 100 ML VIAL ONE (15:13)
[2023-11-06] MEDS ORDERED: DIATRIZOATE MEGLU/DIATRIZO SOD 30 ML BOTTLE PO ONE (15:14)
[2023-11-06] MEDS: DIATRIZOATE MEGLU/DIATRIZO SOD 30 ML BOTTLE PO ONE (17:23)
[2023-11-06] MEDS: iohexoL-300 100 ML VIAL IVP ONE (17:23)
--- NOTE | 2023-11-09 09:51 | CT Report ---
PROCEDURE: Abdomen/Pelvis W INDICATIONS: ABD CRAMPS CONTRAST: 100ml omni 300 TECHNIQUE: After the administration of intravenous contrast, a CT scan of the abdomen and pelvis was performed. Images were recorded and evaluated at appropriate window settings. Reformats: coronal and sagittal. F or radiation dose reduction, the following was used: automated exposure control, adjustment of mA and /or kV according to patient size. COMPARISON: None FINDINGS: Image quality: Diagnostic Lower chest: Bibasilar atelectasis/scarring. Prominent mediastinal fat. Normal heart size. Liver: No suspicious intraparenchymal lesion. A focus of fat stranding is seen anterior to the left l obe with a central tiny hyperdensity measuring 1.2 cm (2/34). Gallbladder and biliary system: Cholelithiasis. No ductal dilation Pancreas: No ductal dilation Spleen: Nonenlarged Adrenals: No discrete nodules Kidneys: No solid mass. No hydronephrosis Vessels and lymph nodes: Mild atherosclerosis. The main portal vein is patent. No abdominal aortic an eurysm. Bowel and peritoneum: No evidence of small bowel obstruction. There are colonic diverticula without e vidence of acute inflammation. Appendix appears nondilated. There are foci of fatty attenuation with encapsulated wall adjacent to the sigmoid colon and bladder dome. Body wall: Small fat-containing umbilical hernia Pelvis: Bladder appears unremarkable. Reproductive organs appear unremarkable on limited CT evaluatio n Bones: There are degenerative changes. Indeterminate heterogeneous attenuation of the marrow, possibl y senescent. IMPRESSION: No evidence of bowel obstruction or abscess. No pathologic ascites. Sequelae of possible fat necrosis adjacent to the left lobe of the liver and sigmoid colon, probably from prior epiploic appendagitis or omental infarct. Reviewed by: Herbie Lomeli MD on 11/09/2023 9:50 AM PDT Approved by: Herbie Lomeli MD on 11/09/2023 9:50 AM PDT Station ID: [id number]
== END 2023-11-06 15:11 | disposition home or self-care (01) ==
LOC: DI 15:10
PROVIDERS: ATTEND Physician Assistant Medical
DX: R10.9 Unspecified abdominal pain (principal)
CPT/HCPCS: 74177; Q9963; Q9967

== ENCOUNTER 2023-12-06 11:02 | Outpatient (CLI) | payer MEDICARE, MEDICAID ==
--- NOTE | 2023-12-06 14:47 | Ultrasound Report ---
PROCEDURE: Abdomen Limited INDICATIONS: ABN ABD IMAGING TECHNIQUE: Real-time focused scanning was performed of the abdomen, with image documentation. COMPARISONS: Abnormal findings on recent CT. FINDINGS: Liver: Increased liver echogenicity, commonly mild hepatic steatosis. Focus of fat necrosis along th e anterior margin of the left hepatic lobe. Gallbladder: Cholelithiasis without wall thickening. Biliary ducts: Intrahepatic bile ducts are non-dilated. Extrahepatic bile duct caliber measures 3 m m. Normal is 6-7 mm or less in diameter, or 10 mm or less post-cholecystectomy. Pancreas: Visualized portions of the pancreas are sonographically normal. Right kidney: Normal in size and echotexture. Right kidney measures 10.7 cm long. No hydronephrosis or nephrolithiasis. No solid masses. No complex renal cystic lesions which require follow-up. IVC: Intrahepatic inferior vena cava is patent. Miscellaneous: No free abdominal fluid. IMPRESSION: Focus of fat necrosis along the anterior margin of the left hepatic lobe. Cholelithiasis without evidence of acute cholecystitis. Reviewed by: Randolph Hensley MD on 12/06/2023 2:46 PM PDT Approved by: Randolph Hnesley MD on 12/06/2023 2:46 PM PDT Station ID: [id number]
== END 2023-12-06 11:03 | disposition home or self-care (01) ==
LOC: DI 11:02
PROVIDERS: ATTEND Registered Nurse
DX: K72.90 Hepatic failure, unspecified without coma (principal); K80.20 Calculus of gallbladder without cholecystitis without obstruction

== ENCOUNTER 2023-12-06 11:34 | Emergency (ER) | payer MEDICARE, MEDICAID ==
[2023-12-06 12:10] LABS: BILIRUBIN,URINE NEGATIVE (NEGATIVE); GLUCOSE, URINE (UA) NEGATIVE (NEGATIVE); KETONES,URINE (UA) NEGATIVE (NEGATIVE); LEUKOCYTE ESTERASE, URINE SMALL (NEGATIVE); NITRITE,URINE NEGATIVE (NEGATIVE); OCCULT BLOOD,URINE TRACE-LYSE (NEGATIVE); PH,URINE 7.5 PH (5.0-7.5); PROTEIN,URINE NEGATIVE (NEGATIVE); UROBILINOGEN,URINE 0.2 (NORMAL) E.U./dL (NORMAL)
[2023-12-06 12:14] LABS: CLARITY,URINE SL. CLOUDY (CLEAR)
[2023-12-06 12:18] LABS: BACTERIA,URINE Few /HPF (None Seen); SQUAMOUS EPITHELIAL CELL,UR FEW Squamous (<= Few); WBC,URINE >25 /HPF (0-5)
--- NOTE | 2023-12-06 12:53 | ED Physician Documentation ---
PD HPI ABD PAIN - Stated complaint Stated Complaint: LWR ABD PX, FREQUENT URINATION - Chief complaint Chief Complaint: Abd Pain - History obtained from History obtained from: Patient - Additional information Additional information: She has had ongoing for several months now lower abdominal cramping with urinary frequency. She was treated with antibiotics for UTI a little over a month ago. Also a little over a month ago she had a colonoscopy that showed mild diverticulosis and a single polyp that was benign. Urine culture from last month grew E. coli that was resistant to the isma quinolones. Denies fevers. PD PAST MEDICAL HISTORY - Past Medical History Past Medical History: Yes Cardiovascular: Deep vein thrombosis, Other Respiratory: None Neuro: None Endocrine/Autoimmune: Type 2 diabetes GI: GERD CASINO PORTER: None : None HEENT: Chronic vision loss Psych: Depression, Anxiety Musculoskeletal: Osteoarthritis Derm: None - Past Surgical History Past Surgical History: Yes General: Colonoscopy Ortho: Knee replacement, Arthroscopic surgery - Present Medications Home Medications: Ambulatory Orders Medication Instructions Recorded Confirmed Dulaglutide [Trulicity] 0.75 mg SQ OAW 04/13/23 12/06/23 Gabapentin [Neurontin] 300 mg PO BID 04/13/23 12/06/23 Omeprazole 40 mg PO DAILY PRN 04/13/23 12/06/23 Sertraline HCl 100 mg PO DAILY 04/13/23 12/06/23 hydrOXYzine HCL [Hydroxyzine HCl] 50 mg PO TID PRN 04/13/23 12/06/23 Nitrofurantoin [Macrobid] 1 cap PO BID #10 cap 12/06/23 - Allergies Allergies/Adverse Reactions: Allergies Allergy/AdvReac Type Severity Reaction Status Date / Time No Known Drug Allergies Allergy Verified 12/06/23 11:51 - Social History Does the pt smoke?: No Smoking Status: Never smoker Does the pt drink ETOH?: No Does the pt have substance abuse?: Yes Substance Use and Type: Marijuana - Immunizations Immunizations are current?: Yes - POLST Patient has POLST: No PD ED PE NORMAL - Vitals Vital signs reviewed: Yes - General General: Alert and oriented X 3, No acute distress - Abdomen Abdomen: Normal bowel sounds, Soft, Non tender - Back Back: No CVA TTP - Neuro Neuro: Alert and oriented X 3 Results - Vitals Vitals: Vital Signs - 24 hr 12/06/23 12/06/23 11:51 13:05 Temperature 36.2 C L Heart Rate 94 84 Respiratory 18 20 Rate Blood Pressure 166/117 H 144/87 H O2 Saturation 100 99 Oxygen O2 Source Room air - Labs Labs: Laboratory Tests 12/06/23 12:00 Urine Color YELLOW Urine Clarity SL. CLOUDY Urine pH 7.5 Ur Specific Dewey 1.020 Urine Protein NEGATIVE Urine Glucose (UA) NEGATIVE Urine Ketones NEGATIVE Urine Occult Blood TRACE-LYSE Urine Nitrite NEGATIVE Urine Bilirubin NEGATIVE Urine Urobilinogen 0.2 (NORMAL) Ur Leukocyte Esterase SMALL H Urine RBC 6-10 H Urine WBC >25 H Ur Squamous Epith Cells FEW Squamous Urine Bacteria Few Ur Microscopic Review INDICATED Urine Culture Comments INDICATED PD Medical Decision Making - ED course ED course: Abdominal cramping with pretty significant workup already, pending ultrasound from this morning. Very benign examination. Will treat the UTI but recommended referral to urology given 2 UTIs in a month or so. Departure - Departure Disposition: Home, Self Care Clinical Impression: Urinary tract infection Qualifiers: Urinary tract infection type: acute cystitis Hematuria presence: without hematuria Qualified Code(s): N30.00 - Acute cystitis without hematuria Condition: Good Record reviewed to determine appropriate education?: Yes Instructions: ED UTI Cystitis Female Follow-Up: Kishor Aldridge MD [Provider Admit Priv/Credential] - Prescriptions: Nitrofurantoin [Macrobid] 1 cap PO BID #10 cap Comments: I sent your prescription electronically to the [facility] in [place]. Given your ongoing symptoms and lack of response to antibiotics reasonable for you to follow-up with the urologist. His numbers on this form. Call for an appointment. We will culture your urine, the results should be done in 48-72 hours. If an antibiotic change is necessary we will call you. Return if worse in the meantime, especially if you develop increasing flank pain, fevers, or cannot keep down the medication. Forms: PCP List Discharge Date/Time: 12/06/23 13:09
[2023-12-06] MEDS: NITROFURANTOIN MACRO 100 MG CAPSULE PO STA (13:00)
[2023-12-06 13:08] VITALS: BP 144/87; O2SAT 99
--- NOTE | 2023-12-07 16:55 | ED Physician Documentation ---
ED Addendum - Addendum Addendum: 12/07/23 16:54 Review of culture with low counts group B strep, my research would suggest that nitrofurantoin should be a decent choice for group B strep.
== END 2023-12-06 13:09 | disposition home or self-care (01) ==
LOC: ED 11:34
DX: N30.00 Acute cystitis without hematuria (principal); K72.90 Hepatic failure, unspecified without coma; K80.20 Calculus of gallbladder without cholecystitis without obstruction
CPT/HCPCS: 76705; 81001; 87077; 87086; 99283; 99284; A9270; 80053; 81003; 83690; 85025

== ENCOUNTER 2023-12-11 07:00 | Outpatient (CLI) | payer MEDICARE, MEDICAID ==
[2023-12-11 20:40] LABS: BILIRUBIN,URINE NEGATIVE (NEGATIVE); GLUCOSE, URINE (UA) NEGATIVE (NEGATIVE); KETONES,URINE (UA) NEGATIVE (NEGATIVE); LEUKOCYTE ESTERASE, URINE NEGATIVE (NEGATIVE); NITRITE,URINE NEGATIVE (NEGATIVE); OCCULT BLOOD,URINE NEGATIVE (NEGATIVE); PH,URINE 8.5 PH (5.0-7.5); PROTEIN,URINE NEGATIVE (NEGATIVE); UROBILINOGEN,URINE 0.2 (NORMAL) E.U./dL (NORMAL)
[2023-12-11 20:53] LABS: BACTERIA,URINE Few /HPF (None Seen); CLARITY,URINE CLEAR (CLEAR); RBC,URINE None Seen /HPF (0-5); SQUAMOUS EPITHELIAL CELL,UR RARE Squamous (<= Few); WBC,URINE 0-3 /HPF (0-5)
== END 2023-12-11 23:59 | disposition home or self-care (01) ==
LOC: LAB.S 07:00
PROVIDERS: ATTEND Internal Medicine
DX: R35.0 Frequency of micturition (principal)
CPT/HCPCS: 81001; 87077; 87086

== ENCOUNTER 2023-12-16 08:00 | Outpatient (CLI) | payer MEDICARE, MEDICAID ==
[2023-12-18 12:10] LABS: GIARDIA LAMBLIA AG EIA Negative (Negative)
== END 2023-12-16 23:59 | disposition home or self-care (01) ==
LOC: LAB.R 08:00
PROVIDERS: ATTEND Internal Medicine
DX: R19.7 Diarrhea, unspecified (principal)
CPT/HCPCS: 83993; 87045; 87046; 87177; 87209; 87329; 87427; 87493